=== PATIENT | male | born 1960 | race Hispanic/Latino ===

== ENCOUNTER 2018-06-15 15:25 | Outpatient (CLI) | payer OTHER ==
--- NOTE | 2018-06-15 22:08 | Vascular Lab Report ---
PROCEDURE: VL VENOUS DUPLEX LE RT TECHNIQUE: Duplex Doppler ultrasound of the right common and superficial femoral, popliteal, posteri or tibial, and proximal deep femoral and greater saphenous veins was attempted. Chapa scale imaging wi th and without compression, spectral waveform analysis with and without augmentation, and color flow Doppler were employed. HISTORY: HISTORY OF DVT'S IN PAST COMPARISONS: None FINDINGS: Deep Venous Thrombus: None Superficial Venous Thrombus: None Venous valvular incompetence: Deep venous reflux is noted involving common femoral and popliteal vei ns measuring 1000 ms and 1883 ms respectively. Soft tissue abnormality: None Other: None IMPRESSION: No evidence of deep venous thrombosis Common femoral and popliteal venous reflux noted This document is electronically signed by José Miguel Cruz MD., June 15 2018 10:07:10 PM ET
== END 2018-06-15 15:26 | disposition home or self-care (01) ==
LOC: VAS 15:25 → EEVIPCON 15:25 → VAS 15:26
PROVIDERS: ATTEND Specialist
DX: I87.2 Venous insufficiency (chronic) (peripheral) (principal); Z86.718 Personal history of other venous thrombosis and embolism